=== PATIENT | female | born 1970 | race Caucasian/White ===

== ENCOUNTER 2017-05-13 18:42 | Emergency (ER) | payer OTHER ==
[~2017-05-13] VITALS: Ht 167.6 cm; Wt 65.0 kg
[2017-05-13] MEDS ORDERED: GABAPENTIN100 MG PO (19:02)
[2017-05-13] MEDS ORDERED: FIORICET PO (19:02)
[2017-05-13] MEDS ORDERED: TOPAMAX50 M1 PO (19:02)
[2017-05-13] MEDS ORDERED: DIAZEPAM5 MG PO (19:03)
[2017-05-13] MEDS ORDERED: AMITIZA24 MCG PO (19:03)
[2017-05-13] MEDS ORDERED: TAMIFLU SUSP 6MG/ML PO (19:29)
[2017-05-13] MEDS ORDERED: AUGMENTIN875TAB PO (19:38)
[2017-05-13] MEDS ORDERED: FLONASE AL50 MCG/ACT (19:38)
[2017-05-13 19:45] VITALS: BP 138/73
== END 2017-05-13 19:45 | disposition home or self-care (01) | DRG 153 ==
LOC: ED 18:42
DX: J32.9 Chronic sinusitis, unspecified (principal); R09.81 Nasal congestion; R50.9 Fever, unspecified

== ENCOUNTER 2019-02-11 11:18 | Emergency (ER) | payer OTHER ==
[~2019-02-11] VITALS: Ht 167.6 cm; Wt 72.0 kg
[~2019-02-11 11:18] MED LIST: AMITIZA24 MCG PO; AUGMENTIN875TAB PO; DIAZEPAM5 MG PO; FIORICET PO; FLONASE AL50 MCG/ACT; GABAPENTIN100 MG PO; TAMIFLU SUSP 6MG/ML PO; TOPAMAX50 M1 PO
[2019-02-11] MEDS ORDERED: MECLIZINE25 MG PO (11:38)
[2019-02-11 11:50] LABS: HEMATOCRIT 37.8 % (37.0-47.0); IMMATURE GRANULOCYTES 0.3 % (0.0-5.0); MEAN CELL VOLUME 90.4 fL CALC (80.0-100.0); MEAN CORPUSCULAR HGB 31.1 pG CALC (26.0-32.0); MEAN CORPUSCULAR HGB CONC 34.4 g/L CALC (32.0-36.0); NEUT# 5.32 thou/uL (2.00-7.15); RED BLOOD COUNT 4.18 mill/uL (4.20-5.60); RED CELL DISTRI WIDTH 12.4 % (11.5-15.5)
[2019-02-11 12:00] LABS: ALBUMIN 4.7 g/dL (3.2-5.0); ALKALINE PHOSPHATASE 56 u/l (38-126); AMYLASE 42 u/l (30-110); ANION GAP 15 (6-22 (CALC)); BILIRUBIN, TOTAL 0.3 mg/dL (0.0-1.4); BUN 17 mg/dL (7-17); BUN/CREATININE RATIO 25 (12-20 (CALC)); CARBON DIOXIDE 26 mmol/l (22-30); CHLORIDE 105 mmol/l (95-108); CREATININE 0.7 mg/dL (0.5-1.0); GFR > 60 ML/MIN (>=60 (CALC)); GFR FOR AFR.AMER. > 60 ML/MIN (>=60 (CALC)); LIPASE 132 u/l (23-300); POTASSIUM 4.5 mmol/l (3.5-5.1); SGOT/AST 23 u/l (14-36); SODIUM 141 mmol/l (137-146); TOTAL PROTEIN 7.8 g/dL (6.3-8.2)
[2019-02-11 12:12] LABS: MYOGLOBIN 24 ng/mL (0 - 62)
[2019-02-11 13:08] LABS: URINE BILIRUBIN - DIPSTICK NEGATIVE (NEGATIVE); URINE BLOOD DIPSTICK MODERATE (NEGATIVE); URINE COLOR YELLOW; URINE GLUCOSE - DIPSTICK NEGATIVE (NEGATIVE); URINE KETONE NEGATIVE (NEGATIVE); URINE LEUK ESTERASE NEGATIVE (NEGATIVE); URINE NITRITE - DIPSTICK NEGATIVE (Negative); URINE PH 8.5 (4.5-8.0); URINE PROTEIN - DIPSTICK NEGATIVE (NEG-TRACE); URINE UROBILINOGEN - DIPSTICK 0.2 E.U./dL (0.2)
[2019-02-11 13:14] LABS: URINE EPITHELIAL CELLS MODERATE EPI/hpf (0-FEW)
[2019-02-11] MEDS ORDERED: TAMSULOSIN0.4 MG PO (14:02)
[2019-02-11] MEDS ORDERED: ONDANSETRON4 MG PO (14:02)
[2019-02-11] MEDS ORDERED: LORTAB 1010 MG PO (14:02)
[2019-02-11 14:16] VITALS: BP 114/67
== END 2019-02-11 14:16 | disposition home or self-care (01) | DRG 694 ==
LOC: ED 11:18
PROVIDERS: Emergency Medicine
DX: N20.1 Calculus of ureter (principal)
CPT/HCPCS: Q9967

== ENCOUNTER 2019-04-15 07:33 | Day surgery (SDC) | payer OTHER ==
[~2019-04-15] VITALS: Ht 162.6 cm; Wt 74.8 kg
[~2019-04-15 07:33] MED LIST changes: +AZO-CRANBERY450 MG PO; +BIOTIN EXTR10000 MCG PO; +CALCIUM 600+D3 PO; +LORTAB 1010 MG PO; +MECLIZINE25 MG PO; +MONTELUKAST SOD10 MG PO; +ONDANSETRON4 MG PO; +SM NASAL DECONG10 MG PO; +TAMSULOSIN0.4 MG PO; +TYLENOL500 MG PO; +[UNRECOGNIZED DRUG - OTHER] PO
[2019-04-15] MEDS ORDERED: TORADOL PO (09:56)
[2019-04-15] MEDS ORDERED: PERCOCET 10/31 COMBO PO (09:56)
[2019-04-15 12:04] VITALS: BP 96/52
== END 2019-04-15 12:21 | disposition home or self-care (01) | DRG 661 ==
LOC: ORM 07:33
PROVIDERS: ATTEND Urology
PROC: 0TC78ZZ Extirpation of Matter from Left Ureter, Via Natural or Artificial Opening Endoscopic (ICD-10-PCS; principal; 2019-04-15)
PROC: 0T778DZ Dilation of Left Ureter with Intraluminal Device, Via Natural or Artificial Opening Endoscopic (ICD-10-PCS; 2019-04-15)
PROC: BT1FZZZ Fluoroscopy of Left Kidney, Ureter and Bladder (ICD-10-PCS; 2019-04-15)
DX: N13.2 Hydronephrosis with renal and ureteral calculous obstruction (principal); I10 Essential (primary) hypertension; Z87.442 Personal history of urinary calculi
CPT/HCPCS: C1769; J0131; J1100; J1956; Q9967